=== PATIENT | male | born 1960 | race Asian ===

== ENCOUNTER → 2020-03-11 | Outpatient (CLI) | payer OTHER | END | disposition home or self-care (01) | LOC: RADMN 08:57 | PROVIDERS: ATTEND Family Medicine | DX: J98.11 Atelectasis (principal); I70.0 Atherosclerosis of aorta | CPT/HCPCS: 71045-TC ==

== ENCOUNTER → 2020-10-12 | Outpatient (CLI) | payer OTHER | END | disposition home or self-care (01) | LOC: RADPV 11:09 | PROVIDERS: ATTEND Family Medicine | DX: I70.0 Atherosclerosis of aorta (principal) | CPT/HCPCS: 71046; 71046-TC ==

== ENCOUNTER → 2021-04-13 | Outpatient (CLI) | payer OTHER | END | disposition home or self-care (01) | LOC: RADPV 13:51 | PROVIDERS: ATTEND Family Medicine | DX: R76.11 Nonspecific reaction to tuberculin skin test without active tuberculosis (principal) | CPT/HCPCS: 71045 ==

== ENCOUNTER → 2022-11-24 | Outpatient (CLI) | payer OTHER | END | disposition home or self-care (01) | LOC: RADMN 09:03 | PROVIDERS: ATTEND Family Medicine | DX: G57.92 Unspecified mononeuropathy of left lower limb (principal) | CPT/HCPCS: 73590-TC ==